=== PATIENT | female | born 1955 | race Caucasian/White ===

== ENCOUNTER 2020-07-11 17:52 | Emergency (ER) | payer MEDICARE, OTHER ==
--- NOTE | 2020-07-11 18:46 | CT ---
CT RIGHT KNEE WITHOUT CONTRAST: 07/11/20 HISTORY: Fall. COMPARISON: None. FINDINGS: Severe soft tissue swelling around the knee especially the medial soft tissues with skin thickening. Large joint effusion. No underlying fracture. Mild narrowing of the medial compartment with osteophyt e formation. No subluxation of patella. Multiple full thickness chondral defects and extensive erosion changes of the lateral trochlea. A few osteochondral defects of the medial trochlea. There is extrusion of the medial meniscus and the medial gutter. No intra-articular fracture is appreciated. IMPRESSION: 1. Moderate-high grade medial compartment joint space disease. 2. 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 3. Large joint effusion without fracture. Concern for acute underlying internal derangement. MRI alberto mmended if clinically warranted. 4. Severe soft tissue swelling throughout the right lower extremity. This could be due to lymphedema or cellulitis. Venous insufficiency is also a possibility versus volume overload. POS: HOME
[2020-07-11] MEDS ORDERED: Acetaminophen 500 MG TAB ONE ×2 (20:33→20:37)
== END 2020-07-11 21:34 | disposition home or self-care (01) ==
LOC: NAV ERS 17:52
DX: M23.91 Unspecified internal derangement of right knee (principal); I10 Essential (primary) hypertension; E11.9 Type 2 diabetes mellitus without complications; E66.9 Obesity, unspecified; W01.0XXA Fall on same level from slipping, tripping and stumbling without subsequent striking against object, initial encounter